=== PATIENT | female | born 1965 | race Caucasian/White ===

== ENCOUNTER → 2017-01-04 | Outpatient (CLI) | payer BC ==
[~2017-01-04] MED LIST: PHENERGAN 25 TA25 MG PO; PHENERGAN25 MG RC; YAZ; ZOLOFT
== END ==
LOC: MC.RAD 10:54
DX: Z12.31 Encounter for screening mammogram for malignant neoplasm of breast (principal)

== ENCOUNTER → 2018-02-22 | Outpatient (CLI) | payer BC | LOC: MC.RAD 08:48 | DX: Z12.31 Encounter for screening mammogram for malignant neoplasm of breast (principal) ==

== ENCOUNTER → 2019-03-13 | Outpatient (CLI) | payer BC | LOC: MC.RAD 14:40 | DX: Z12.31 Encounter for screening mammogram for malignant neoplasm of breast (principal) ==

== ENCOUNTER → 2020-04-02 | Outpatient (CLI) | payer BC | LOC: MC.RAD 09:29 | DX: Z12.31 Encounter for screening mammogram for malignant neoplasm of breast (principal); Z98.82 Breast implant status ==

== ENCOUNTER → 2021-06-04 | Outpatient (CLI) | payer BC | LOC: MC.RAD 07:52 | DX: Z12.31 Encounter for screening mammogram for malignant neoplasm of breast (principal) ==

== ENCOUNTER → 2021-06-06 | Outpatient (CLI) | payer BC | LOC: MC.RAD 08:58 | DX: N63.24 Unspecified lump in the left breast, lower inner quadrant (principal) ==

== ENCOUNTER → 2021-06-17 | Outpatient (CLI) | payer BC | LOC: MC.RAD 07:53 | DX: N60.02 Solitary cyst of left breast (principal); R92.0 Mammographic microcalcification found on diagnostic imaging of breast ==